=== PATIENT | male | born 1990 | race Caucasian/White ===

== ENCOUNTER 2018-07-28 15:24 | Emergency (ER) | payer BC ==
[2018-07-28] MEDS ORDERED: Lidocaine 1%* 5 ML VIAL INJ ONE (15:39)
[2018-07-28 15:40] VITALS: BP 134/75
--- NOTE | 2018-07-28 15:58 | UC ---
Skin Complaint HPI - HPI Summary HPI Summary: 28-year-old male comes in with a chief complaint of injury to the right hand. Just prior to arrival he tripped and fell into a medicine cabinet. The glass broke and he has 3 lacerations on his right hand. He reports he is up-to-date on his tetanus in the last 2 years. Bleeding was stopped with direct pressure. He does not believe that any foreign bodies in the wounds. He can move his hands with full range of motion full-strength. No sensation deficit. - History of Current Complaint Chief Complaint: UCLaceration Time Seen by Provider: 07/28/18 15:32 Stated Complaint: R HAND INJURY Pain Intensity: 0 - Allergy/Home Medications Allergies/Adverse Reactions: Allergies Allergy/AdvReac Type Severity Reaction Status Date / Time No Known Allergies Allergy Verified 07/28/18 15:40 Home Medications: Home Medications NK [No Home Medications Reported] 07/28/18 [History Confirmed 07/28/18] PMH/Surg Hx/FS Hx/Imm Hx Previously Healthy: Yes - Surgical History Surgical History: None - Family History Known Family History: Positive: Non-Contributory - Social History Alcohol Use: Occasionally Substance Use Type: None Smoking Status (MU): Never Smoked Tobacco Review of Systems All Other Systems Reviewed And Are Negative: Yes Constitutional: Positive: Negative Skin: Positive: Other - SEE HPI Eyes: Positive: Negative ENT: Positive: Negative Respiratory: Positive: Negative Cardiovascular: Positive: Negative Gastrointestinal: Positive: Negative Motor: Positive: Negative Neurovascular: Positive: Negative Musculoskeletal: Positive: Negative Neurological: Positive: Negative Psychological: Positive: Negative Is Patient Immunocompromised?: No Physical Exam Triage Information Reviewed: Yes Appearance: Well-Appearing, No Pain Distress, Well-Nourished Vital Signs: Initial Vital Signs Temp 98.1 F 07/28/18 15:31 Pulse 112 07/28/18 15:31 Resp 21 07/28/18 15:31 BP 134/75 07/28/18 15:31 Pulse Ox 96 07/28/18 15:31 Vital Signs Reviewed: Yes Eye Exam: Normal Eyes: Positive: Conjunctiva Clear Neck exam: Normal Neck: Positive: Supple Respiratory: Positive: No respiratory distress Musculoskeletal Exam: Normal Musculoskeletal: Positive: Strength Intact, ROM Intact Neurological Exam: Normal Neurological: Positive: Alert, Muscle Tone Normal Psychological Exam: Normal Psychological: Positive: Age Appropriate Behavior Skin: Positive: Other - Right hand has 3 lacerations. One is on the radial aspect of the hand just proximal to the index finger it is subcutaneous and 1 cm long. There are 2 more on the dorsum of the hand is 1 cm long both subcutaneous. One of the lacerations is over the extensor tendon for third finger proximal to the MCP joint. There is no active bleeding. Fingers and wrist have full range of motion and strength 5 out of 5. Normal capillary refill no sensation deficit. Course/Dx - Course Course Of Treatment: The wounds were cleaned by nursing. There is no active bleeding in the clinic. All tendons were intact to exam. I recommended suturing of the wounds and the patient declined. I let him know to get reevaluated is any signs of infection. Also fever like his hand was not working correctly he needs to follow up with the hand orthopedist. - Diagnoses Provider Diagnosis: Laceration of right hand Discharge - Sign-Out/Discharge Documenting (check all that apply): Patient Departure All imaging exams completed and their final reports reviewed: No Studies - Discharge Plan Condition: Stable Disposition: HOME Patient Education Materials: Laceration Without Closure (ED) Referrals: [facility] [Outside] Gladis Alexander MD [Medical Doctor] - Additional Instructions: FOLLOW UP WITH ORTHOPEDICS, DR ALEXANDER, IF NOT COMPLETELY IMPROVED. GET RECHECKED FOR ANY WORSENING OF YOUR CONDITION; SIGNS OF INFECTION, WEAKNESS OR QUESTIONS OR CONCERNS. - Billing Disposition and Condition Condition: STABLE Disposition: Home
== END 2018-07-28 16:00 | disposition home or self-care (01) ==
LOC: UCEAST 15:24
DX: S61.411A Laceration without foreign body of right hand, initial encounter (principal); W01.190A Fall on same level from slipping, tripping and stumbling with subsequent striking against furniture, initial encounter; Y92.9 Unspecified place or not applicable
CPT/HCPCS: 99202; G0463

== ENCOUNTER 2019-09-05 18:30 | Emergency (ER) | payer BC ==
[2019-09-05 18:52] VITALS: BP 144/88
--- NOTE | 2019-09-05 19:07 | UC ---
FLU HPI - HPI Summary HPI Summary: 24-36 HOURS OF SINUS CONGESTION, LEFT EAR PAIN, COUGH, CHILLS, HEADACHE AND BODY ACHES. UP-TO-DATE FLU SHOT AND. [place] [employer] [facility] [place] - History of Current Complaint Chief Complaint: UCRespiratory Stated Complaint: EAR PAIN Hx Obtained From: Patient Onset/Duration: Gradual Onset, Lasting Days - 1 DAY, Still Present Severity Currently: Moderate Severity Initially: Moderate Pain Intensity: 2 Pain Scale Used: 0-10 Numeric Associated Signs & Symptoms: Positive: Myalgia, Cough, Nasal Congestion, Headache - Allergy/Home Medications Allergies/Adverse Reactions: Allergies Allergy/AdvReac Type Severity Reaction Status Date / Time No Known Allergies Allergy Verified 09/05/19 18:52 Home Medications: Home Medications diphenhydrAMINE HCL [Zzzquil] 25 mg PO Q6H 09/05/19 [History Confirmed 09/05/19] PMH/Surg Hx/FS Hx/Imm Hx Previously Healthy: Yes - Surgical History Surgical History: Yes Surgery Procedure, Year, and Place: eye surgery for a lazy eye - Family History Known Family History: Positive: Non-Contributory - Social History Alcohol Use: Weekly Alcohol Amount: 2x Substance Use Type: None Smoking Status (MU): Never Smoked Tobacco Physical Exam Vital Signs: Initial Vital Signs Temp 99.0 F 09/05/19 18:47 Pulse 109 09/05/19 18:47 Resp 16 09/05/19 18:47 BP 144/88 09/05/19 18:47 Pulse Ox 98 09/05/19 18:47 Discharge ED - Discharge Plan Referrals: No Primary Care Phys,NOPCP [Primary Care Provider] -
[2019-09-05 19:44] LABS: Influenza A Molecular Negative (Negative); Influenza B Molecular Negative (Negative)
[2019-09-05] MEDS ORDERED: Amoxicillin PO (*) 500 MG CAP PO ONE ×2 (19:49)
--- NOTE | 2019-09-05 19:51 | UC ---
FLU HPI - HPI Summary HPI Summary: 24-36 HOURS OF COUGH, SINUS CONGESTION, CHILLS, HEADACHE, BODY ACHES AND LEFT EAR PAIN. UP-TO-DATE FLU SHOT. [place] [employer] [employer] [place] - History of Current Complaint Chief Complaint: UCRespiratory Stated Complaint: EAR PAIN Time Seen by Provider: 09/05/19 19:09 Hx Obtained From: Patient Onset/Duration: Gradual Onset, Lasting Days - 1 DAY, Still Present Severity Currently: Moderate Severity Initially: Moderate Pain Intensity: 2 Pain Scale Used: 0-10 Numeric Associated Signs & Symptoms: Positive: Myalgia, Cough, Nasal Congestion, Headache - Allergy/Home Medications Allergies/Adverse Reactions: Allergies Allergy/AdvReac Type Severity Reaction Status Date / Time No Known Allergies Allergy Verified 09/05/19 18:52 Home Medications: Home Medications diphenhydrAMINE HCL [Zzzquil] 25 mg PO Q6H 09/05/19 [History Confirmed 09/05/19] PMH/Surg Hx/FS Hx/Imm Hx Previously Healthy: Yes - Surgical History Surgical History: Yes Surgery Procedure, Year, and Place: eye surgery for a lazy eye - Family History Known Family History: Positive: Non-Contributory - Social History Alcohol Use: Weekly Alcohol Amount: 2x Substance Use Type: None Smoking Status (MU): Never Smoked Tobacco Review of Systems All Other Systems Reviewed And Are Negative: Yes Constitutional: Positive: Chills, Fatigue ENT: Positive: Ear Ache, Nasal Discharge, Sinus Congestion Respiratory: Positive: Cough Cardiovascular: Positive: Negative Gastrointestinal: Positive: Negative Musculoskeletal: Positive: Myalgia Neurological/Mental Status: Positive: Headache Physical Exam Triage Information Reviewed: Yes Appearance: Well-Appearing, No Pain Distress, Well-Nourished Vital Signs: Initial Vital Signs Temp 99.0 F 09/05/19 18:47 Pulse 109 09/05/19 18:47 Resp 16 09/05/19 18:47 BP 144/88 09/05/19 18:47 Pulse Ox 98 09/05/19 18:47 Laboratory Tests 09/05/19 19:32 Influenza A (Rapid) Negative Influenza B (Rapid) Negative Vital Signs Reviewed: Yes Eyes: Positive: Conjunctiva Clear ENT: Positive: Hearing grossly normal, Pharynx normal, Other - RIGHT TM NORMAL. LEFT TM DULL, ERYTHEMATOUS Neck: Positive: Supple, Nontender, No Lymphadenopathy Respiratory Exam: Normal Cardiovascular Exam: Normal Abdomen Description: Positive: Nontender, Soft Musculoskeletal: Positive: No Edema Neurological: Positive: Alert Psychological: Positive: Age Appropriate Behavior Skin: Negative: Rashes Flu Course/Dx - Course Course Of Treatment: FLU SWAB NEGATIVE. PATIENT DOES HAVE A LEFT-SIDED OTITIS MEDIA. WILL COVER WITH AMOXICILLIN TWICE DAILY FOR 10 DAYS. RECOMMEND CONSERVATIVE MANAGEMENT OF HIS FLULIKE SYMPTOMS. REST, HYDRATE, OTC MEDS NEEDED. FOLLOW-UP IF NOT IMPROVING EXPECTED OVER THE NEXT WEEK OR SO. - Differential Dx/Diagnosis Provider Diagnosis: Left otitis media, Acute viral syndrome Discharge ED - Sign-Out/Discharge Documenting (check all that apply): Patient Departure All imaging exams completed and their final reports reviewed: No Studies - Discharge Plan Condition: Stable Disposition: HOME Patient Education Materials: Ear Infection (ED), Viral Syndrome (ED) Forms: *Work Release Referrals: [facility] [Outside] - If Needed Additional Instructions: FLU NEGATIVE. YOU HAVE A LEFT SIDED EAR INFECTION. TAKE THE ANTIBIOTICS FOR THE FULL COURSE. YOUR FLU-LIKE SYMPTOMS ARE LIKELY VIRALLY MEDIATED AND SHOULD RESOLVE ON THEIR OWN WITH TIME. NO INDICATION FOR ANTIBIOTICS AT PRESENT. REST, HYDRATE, OTC MEDS NEEDED. SEEK FOLLOW-UP IF YOU ARE NOT IMPROVING OVER THE NEXT 1-2 WEEKS. CALL THE NUMBER BELOW FOR ASSISTANCE IN ESTABLISHING WITH A PCP An additional resource available to assist in finding the appropriate physician for your health care needs is the [facility] ([facility]). You may contact them by calling [phone]. - Billing Disposition and Condition Condition: STABLE Disposition: Home
== END 2019-09-05 20:05 | disposition home or self-care (01) ==
LOC: UCEAST 18:30
DX: B34.9 Viral infection, unspecified (principal); H66.92 Otitis media, unspecified, left ear; R53.83 Other fatigue; M79.10 Myalgia, unspecified site; R51 Headache
CPT/HCPCS: 99212; A9270-GY; G0463